=== PATIENT | male | born 1970 | race Caucasian/White ===

== ENCOUNTER 2025-05-06 13:48 | Emergency (ER) | payer OTHER, BC ==
[~2025-05-06] VITALS: Ht 167.6 cm; Wt 104.3 kg
[2025-05-06 14:25] LABS: IMMATURE GRANULOCYTE ABSOLUTE 0.06 K/uL (0-1); NUCLEATED RED BLOOD CELLS 0.0 % (0.0-0.19); PLATELET COUNT (AUTO) 295 K/uL (130-400); RED BLOOD CELL COUNT(AUTO) 4.28 MIL/uL (4.50-6.20); RED CELL DISTRIBUTION WIDTH 13.6 % (11.0-15.5); WHITE BLOOD COUNT (AUTO) 9.7 K/uL (4.8-10.8)
[2025-05-06 14:45] LABS: ALCOHOL, BLOOD < 3 mg/dL (0-10); ASPARTATE AMINOTRANSFERASE 10 U/L (10-37); CREATININE 0.7 mg/dL (0.5-1.3); GLOMERULAR FILTR. RATE CALC 108 mL/min (>90); GLUCOSE,RANDOM 260 mg/dL (70-105); SODIUM SERUM 140 mmol/L (136-145); TOTAL PROTEIN, SERUM 7.1 g/dL (6.0-8.3); UREA NITROGEN, BLOOD 13 mg/dL (7-18)
[2025-05-06 14:58] LABS: AMPHET/METH SCREEN,URINE NEGATIVE (NEGATIVE); BARBITURATE SCREEN, URINE NEGATIVE (NEGATIVE); CANNABINOID SCREEN,URINE POSITIVE (NEGATIVE); COCAINE SCREEN,URINE NEGATIVE (NEGATIVE)
--- NOTE | 2025-05-06 15:12 | HMCIMG ---
EXAM: CR Chest, 1 View. CLINICAL HISTORY: pain COMPARISON: None provided. FINDINGS: There is bibasilar airspace disease that may reflect atelectasis and/an infectious process. Suspected small right pleural effusion. No pneumothorax. Mild cardiomegaly, and central pulmonary vascular congestion. IMPRESSION: 1. Bibasilar airspace disease, possibly representing atelectasis or infection 2. Small right pleural effusion 3. Cardiomegaly with pulmonary vascular congestion /[place]
[2025-05-06] MEDS ORDERED: CYCL-309 PO (16:03)
[2025-05-06] MEDS ORDERED: POLY17PO4 PO (16:03)
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
[2025-05-06 16:17] VITALS: BP 178/85; PULSE 95; RESP 20; TEMP 98.3; O2SAT 96
== END 2025-05-06 16:23 | disposition home or self-care (01) ==
LOC: EDH 13:48
DX: S29.012A Strain of muscle and tendon of back wall of thorax, initial encounter (principal); E11.9 Type 2 diabetes mellitus without complications; Z86.73 Personal history of transient ischemic attack (TIA), and cerebral infarction without residual deficits; Z88.6 Allergy status to analgesic agent; Z88.8 Allergy status to other drugs, medicaments and biological substances; Z79.899 Other long term (current) drug therapy; V89.2XXA Person injured in unspecified motor-vehicle accident, traffic, initial encounter; Y92.410 Unspecified street and highway as the place of occurrence of the external cause; Y92.89 Other specified places as the place of occurrence of the external cause; Y99.8 Other external cause status
CPT/HCPCS: 36415; 71045; 80053; 80305; 83690; 83880; 84484; 85025; 99284

== ENCOUNTER 2025-07-31 11:57 | Emergency (ER) | payer BC, OTHER ==
[~2025-07-31] VITALS: Ht 177.8 cm; Wt 143.3 kg
[~2025-07-31 11:57] MED LIST: CYCL-309 PO; POLY17PO4 PO
--- NOTE | 2025-07-31 12:09 | ERN ---
ED Note History of Present Illness Stated Complaint: SOB,BLE EDEMA Chief Complaint: LOWER EXTREMITY EDEMA Time Seen by MD: 11:59 Dictation: Patient is a 55-year-old male coming in today from [place] with complaints of having edema to his bilateral lower extremities shortness a breath and abdominal distention for the last four days. He denies any history other than he is on hydrochlorothiazide for edema. He is a poor historian states he has not been to see his primary care doctor. No fever no chills no chest pain at this time. Patient does state he ran out of his HCTZ and Lasix one month ago and did not go back to see his primary care doctor for refills. Allergies: Coded Allergies: DENVER Inhibitors (Unverified Allergy, Intermediate, 05/06/25) amlodipine (Unverified Allergy, Intermediate, 05/06/25) hydralazine (Unverified Allergy, Intermediate, 05/06/25) lisinopril (Unverified Allergy, Intermediate, 05/06/25) metformin (Unverified Allergy, Intermediate, 05/06/25) minoxidil (Unverified Allergy, Intermediate, 05/06/25) naproxen (Unverified Allergy, Intermediate, FACIAL SWELLING, 05/06/25) Home Meds Active Scripts Polyethylene Glycol 3350 (Miralax) 17 Gram Powd.pack, 1 PACKET PO DAILY for constipation for 2 Days, #2 PACKET 0 Refills dissolve in water Prov:JOSÉ CARDONAP 05/06/25 Cyclobenzaprine HCl (Cyclobenzaprine HCl) 10 Mg Tablet, 1 TAB PO TID for muscle spasms for 10 Days, #30 TAB 0 Refills Prov:JOSÉ CARDONAP 05/06/25 Past Medical History Past Medical History: CVA, Diabetes-Type II, Hypertension, Stroke Surgical History: None RN Note Reviewed/Agreed w/PFSH: Yes Review of System Dictation CONSTITUTIONAL: Negative except for HPI HEAD/FACE: Negative except for HPI EENT: Negative except for HPI RESPIRATORY: Negative except for HPI dyspnea 3+ edema lower extremities GASTROINTESTINAL/ABDOMINAL: Negative except for HPI distention GENITOURINARY: Negative except for HPI MUSCULOSKELETAL: Negative except for HPI INTEGUMENTARY: Negative except for HPI NEUROLOGICAL/PSYCH: Negative except for HPI HEMATOLOGIC/LYMPHATIC: Negative except for HPI All Systems Negative, Except as noted above. 13 point review of systems assessed and all negative except for above. Initial Vital Sign VS Vital Signs Date Time Temp Pulse Resp B/P (MAP) Pulse Ox O2 Delivery O2 Flow Rate FiO2 07/31/25 11:59 98.2 101 20 180/102 99 Room Air 07/31/25 12:07 0 21 Physical Exam Dictation Vital Signs reviewed General Appearance: Alert, oriented x 3, poorly conditioned and morbidly obese male Head and Face: non-traumatic. Eyes: PERRL, pink conjunctivas, eyelid no trauma, anterior chamber with arcus senilis. Ears: Pinnas intact and no signs of trauma or erythema ear canals clear and no discharge TM no erythema Nose: No discharge, no bleeding. Oropharynx: Mouth normal, tongue pink, pharynx clear,no erythema, tonsils no exudates, no abscesses noted, mucous membrane moist Neck: Supple, non-tender, no thyromegaly, no masses, no JVD, no bruits Breast:Deferred Chest:No tenderness, no crepitus, no paradoxical movement, no retractions Lungs:Clear, well-ventilated, symmetric, no rales, no wheezing, no rhonchi, no stridor, good breath sounds bilaterally Heart: Regular rate, regular rhythm, no murmur, no gallops Vascular: n 3+ peripheral edema bilateral lower extremities, Abdomen: Soft, positive bowel sounds, nondistended, no guarding, nontender, no rebound, no masses no hepatomegaly, no splenomegaly, no Jiménez's sign, no hernias. Protuberant Rectal: Deferred Genital: Deferred Neurological: Normal speech, motor function intact, sensory function intact Musculoskeletal: Neck nontender, full range of motion, back nontender, full range of motion, Extremities: nontender, full range of motion Skin: Color pink, dry, no turgor, no rash, no lacerations, no abrasions, no contusions. Lymphatic: Deferred Results (Laboratory/Radiology) Laboratory/Radiology Laboratory Tests Test 07/31/25 12:07 07/31/25 12:28 Urine Color YELLOW (YELLOW) Urine Appearance CLEAR (CLEAR) Urine pH 6.0 (5.0-8.0) Urine Specific [place] 1.028 (1.001-1.031) Urine Protein 100 mg/dL (NEGATIVE) H Urine Glucose (UA) >=1000 mg/dL (NEGATIVE) H Urine Ketones NEGATIVE mg/dL (NEGATIVE) Urine Occult Blood NEGATIVE (NEGATIVE) Urine Nitrate NEGATIVE (NEGATIVE) Urine Bilirubin NEGATIVE mg/dL (NEGATIVE) Urine Urobilinogen 0.2 mg/dL (0.2-1.0) Urine Leukocyte Esterase NEGATIVE Ste[place]/uL Urine RBC 2-5 /HPF (0-1) H Urine WBC 2-5 /HPF (0-1) H Urine Squamous Epithelial Cells RARE /HPF (0-2) Urine Bacteria None /HPF (None Seen) White Blood Count 9.6 K/uL (4.8-10.8) Red Blood Count 4.49 MIL/uL (4.50-6.20) L Hemoglobin 12.5 g/dL (14.0-18.0) L Hematocrit 39.3 % (42-54) L Mean Corpuscular Volume 87.5 fL (79-99) Mean Corpuscular Hemoglobin 27.8 pg (27.0-33.0) Mean Corpuscular Hemoglobin Concent 31.8 g/dL (32.0-36.0) L Red Cell Distribution Width 14.0 % (11.0-15.5) Platelet Count 255 K/uL (130-400) Mean Platelet Volume 9.9 fL (7.5-10.5) Immature Granulocyte % (Auto) 0.5 % (0-1) Neutrophils (%) (Auto) 73.3 % (40.0-77.0) Lymphocytes (%) (Auto) 16.7 % (21.0-51.0) L Monocytes (%) (Auto) 7.4 % (3.0-13.0) Eosinophils (%) (Auto) 1.7 % (0.0-8.0) Basophils (%) (Auto) 0.4 % (0.0-5.0) Neutrophils # (Auto) 7.0 K/uL (1.8-7.7) Lymphocytes # (Auto) 1.6 K/uL (1.0-4.8) Monocytes # (Auto) 0.7 K/uL (0.1-1.0) Eosinophils # (Auto) 0.16 K/uL (0.00-0.70) Basophils # (Auto) 0.04 K/uL (0.00-0.20) Absolute Immature Granulocyte (auto 0.05 K/uL (0-1) Nucleated Red Blood Cells 0.0 % (0.0-0.19) Sodium Level 137 mmol/L (136-145) Potassium Level 3.6 mmol/L (3.5-5.1) Chloride Level 101 mmol/L (101-111) Carbon Dioxide Level 31 mmol/L (21-32) Blood Urea Nitrogen 13 mg/dL (7-18) Creatinine 0.9 mg/dL (0.5-1.3) Glomerular Filtration Rate Calc 100 mL/min (>90) Random Glucose 262 mg/dL (70-105) H Total Calcium 8.7 mg/dL (8.5-10.1) Magnesium Level 1.60 mg/dL (1.80-2.40) L Troponin I High Sensitivity 23 ng/L (4-75) B-Type Natriuretic Peptide 675 pg/mL (0-100) H 1232/chest x-ray shows bilateral vascular congestion without infiltrate Labs Reviewed?: Yes EKG Comment: EKG sinus tachycardia/heart rate 102/axis normal/no ectopy ED Course ED Course Orders Procedure Category Date Status Time B-Type Natriuretic LAB 07/31/25 Complete Peptide 12:03 Cbc With Differential LAB 07/31/25 Complete 12:03 12 Lead Ekg Tracing- EKG 07/31/25 Complete Technical 12:03 Magnesium LAB 07/31/25 Complete 12:03 Troponin I High LAB 07/31/25 Complete Sensitivity 12:03 Urinalysis Profile LAB 07/31/25 Complete 12:03 Basic Metabolic Panel LAB 07/31/25 Complete 12:03 Chest 1vw RAD 07/31/25 Resulted 12:03 Furosemide 40mg Vial PHA 07/31/25 Complete (Lasix 40mg Vial) 13:00 Current Medications Medications (Trade) Dose Ordered Sig/Fahad Route PRN Reason Start Time Stop Time Status Last Admin Dose Admin Furosemide (LASix 40MG VIAL) 80 mg ONCE ONCE IVP 07/31/25 13:00 07/31/25 13:01 DC 07/31/25 12:41 Vital Signs Date Time Temp Pulse Resp B/P (MAP) Pulse Ox O2 Delivery O2 Flow Rate FiO2 07/31/25 12:07 98.2 101 20 180/102 99 Room Air* 0 21 07/31/25 11:59 98.2 101 20 180/102 99 Room Air 1232/spoke with patient at length about his past medical history he does now admit that he has a diabetic and has hypertension and congestive Heart failure He said he ran out of his Lasix and HCTZ one month ago and did not go back to see Dr. Arellano in [place] for refills. He also states he has a insulin 70/30 at home in the refrigerator and a blood pressure medication that he just not take. He states he is not take the hypertensive medications because they making feel like shit and he is i mpotent.1315/ 1315/SPOKE TO PATIENT REGARDING HIS CLINICAL FINDINGS TO INCLUDE CONGESTIVE HEART FAILURE FLUID OVERLOAD UNCONTROLLED DIABETES. HE IS ADAMANT HE DOES NOT WANT TO STAY IN THE HOSPITAL AND SAYS HE HAS TO GO HOME BECAUSE HE HAS TO GO TO WORK. I TOLD HIM I PLAN OF A MORE AGGRESSIVE DIURESIS OVER THE NEXT 4-5 DAYS. IN ADDITION I WE WILL GIVE HIM REFILLS ON HYDROCHLOROTHIAZIDE. HE WAS STRONGLY ADVISED TO REDUCE HIS SODIUM IN HIS DIET AND FOLLOW UP WITH HIS DOCTOR AT [place] SOON POSSIBLE. HE WAS ALSO STRONGLY ADVISED TO BE COMPLIANT WITH HIS DIABETIC MEDICATIONS AND WAS GIVEN THE MEDICAL COMPLICATIONS TO INCLUDE BLINDNESS RENAL FAILURE ETC. HE SAID HE HAD RED GOOGLE AND HE UNDERSTOOD ALL THOSE THINGS. Medical Decision Making MDM MDM: DIFFERENTIAL DIAGNOSIS: ACS/PNEUMONIA/BRONCHITIS/A CONGESTIVE HEART F AILURE/CHRONIC KIDNEY DISEASE/ELECTROLYTE IMBALANCE/DECONDITIONING RATIONALE: TESTS CONSIDERED AND ORDERED SECONDARY TO SHARED DECISION MAKING INCLUDE: EKG/LABS/RADIOLOGY PREVIOUS OUTSIDE RECORDS REVIEWED: OLD ER VISITS. RISK OF COMPLICATION AND/OR MORBIDITY OR MORTALITY OF PATIENT MANAGEMENT: NONE MEDICATIONS-PER MEDICATION RECONCILIATION NEED FOR HOSPITALIZATION: PATIENT DOES NOT MEET CRITERIA FOR HOSPITALIZATION. PATIENT REFUSED ADMISSION STATES HE HAS TO GO HOME NEED FOR EMERGENCY MAJOR/MINOR SURGERY: NO THERE ARE NO SOCIAL CONCERNS WITH THIS PATIENT. PRESCRIPTION DRUG MANAGEMENT HCTZ/LASIX/K-DUR PRESCRIPTIONS WILL INCLUDE SYMPTOMATIC CARE PATIENT'S PRIOR EXTERNAL MEDICAL RECORDS FROM OTHER ER VISITS WERE REVIEWED BY ME INDICATED. PRIOR TESTING AND RESULTS FROM PREVIOUS VISITS WERE REVIEWED. PRIOR TESTS WERE TAKEN INTO ACCOUNT WITH MEDICAL DECISION MAKING AND RESOURCE U TILIZATION, INDEPENDENT HISTORIAN/HISTORIANS WERE USED TO OBTAIN COMPLETE MEDICAL HISTORY. I INDEPENDENTLY INTERPRETED THE TEST THAT WERE PERFORMED, RESULTS WERE REVIEWED BY ME AND CONSIDERED FINDINGS ON RADIOLOGY IF ORDERED. MEDICAL MANAGEMENT AND EXAMINATION INTERPRETATION DISCUSSIONS WERE HAD BY ME WITH OTHER QUALIFIED HEALTHCARE PROFESSIONALS INDICATED FOR THE PATIENT'S CA RE. DX & DISP Disposition: Discharge Departure Impression: Primary Impression: Acute exacerbation of congestive heart failure Additional Impressions: Uncontrolled diabetes mellitus, Hypomagnesemia, Dyspnea on minimal exertion, Medical non-compliance, Hypertension, Obesity, Chronic anemia Condition: Stable Scripts Potassium Chloride (K-Dur/Klor-Con) 20 Meq Ertab 1 TAB PO DAILY for 10 Days, #10 TAB 0 Refills Prov: JUAN MARIN NP 07/31/25 Furosemide (Furosemide) 80 Mg Tablet 1 TAB PO DAILY for 7 Days, #7 TAB 0 Refills Prov: JUAN MARIN NP 07/31/25 Hydrochlorothiazide (Hydrochlorothiazide) 25 Mg Tablet 1 TAB PO DAILY for 30 Days, #30 TAB 0 Refills Prov: JUAN MARIN NP 07/31/25 Additional Instructions: FOLLOW-UP WITH PRIMARY CARE PROVIDER IN 1 TO 2 DAYS. TAKE MEDICATIONS DI RECTED HERE IN THE EMERGENCY ROOM. OKAY TO CONTINUE HOME MEDICATIONS UNLESS OTHERWISE DISCUSSED DURING YOUR VISIT IN THE EMERGENCY ROOM TODAY. RETURN TO YOUR NEAREST EMERGENCY ROOM IF SYMPTOMS WORSEN OR IF THERE IS NO IMPROVEMENT. CALL 911 IF YOU NEED IMMEDIATE ASSISTANCE. TAKE TYLENOL OR MOTRIN [id number] NEEDED AND IF NO CONTRAINDICATIONS ARE PRESENT. INCREASE ORAL HYDRATION. A WOUND CULTURE OR URINE CULTURE WAS ORDERED HERE IN THE EMERGENCY ROOM DEPARTMENT PLEASE FOLLOW-UP WITH PRIMARY CARE PROVIDER AND ADVISE THEM TO GET REPEAT PORTS FROM OUR FACILITY. IF YOU HAD ANY DENVER WRAP/SPLINTS THAT WERE APPLIED HERE, PLEASE DO NOT REMOVE THEM UNTIL YOU SEE YOUR PRIMARY CARE OR SPECIALTY. STRONGLY SUGGEST RESUMING USE OF YOUR BLOOD PRESSURE MEDICATIONS AND YOUR DIABETIC MEDICATIONS AT HOME. TAKE LASIX 80 MG DAILY FOR SEVEN DAYS DIRECTED WITH POTASSIUM. TAKE HCTZ DIRECTED DAILY AND SEE YOUR DOCTOR IN [place] IN THE NEXT 3-4 DAYS FOR MANAGEMENT USE YOUR ALBUTEROL INHALER EVERY 4-6 HOURS FOR THE NEXT TWO DAYS. Referrals: PARISA ARELLANO (PCP) Time of Disposition: 13:17 I have reviewed the case, and I agree with, Diagnosis and Plan JUAN MARIN NP Jul 31, 2025 12:09
--- NOTE | 2025-07-31 12:19 | EKG ---
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
[2025-07-31 12:22] LABS: APPEARANCE,URINE CLEAR (CLEAR); GLUCOSE, URINE (UA) >=1000 mg/dL (NEGATIVE); LEUKOCYTE ESTERASE ,URINE NEGATIVE Leu/uL (NEGATIVE); NITRATE,URINE NEGATIVE (NEGATIVE); OCCULT BLOOD,URINE NEGATIVE (NEGATIVE)
[2025-07-31 12:24] LABS: ADD UA MICROSCOPIC YES
[2025-07-31 12:28] LABS: SQUAMOUS EPITHELIAL CELL,UR RARE /HPF (0-2)
[2025-07-31 12:39] LABS: IMMATURE GRANULOCYTE ABSOLUTE 0.05 K/uL (0-1); NUCLEATED RED BLOOD CELLS 0.0 % (0.0-0.19); PLATELET COUNT (AUTO) 255 K/uL (130-400); RED BLOOD CELL COUNT(AUTO) 4.49 MIL/uL (4.50-6.20); RED CELL DISTRIBUTION WIDTH 14.0 % (11.0-15.5); WHITE BLOOD COUNT (AUTO) 9.6 K/uL (4.8-10.8)
[2025-07-31 12:46] LABS: CREATININE 0.9 mg/dL (0.5-1.3); GLOMERULAR FILTR. RATE CALC 100.0 mL/min (>90); GLUCOSE,RANDOM 262.0 mg/dL (70-105); SODIUM SERUM 137.0 mmol/L (136-145); UREA NITROGEN, BLOOD 13.0 mg/dL (7-18)
--- NOTE | 2025-07-31 13:13 | HMCIMG ---
EXAM: CR Chest, 1 View. CLINICAL HISTORY: Shortness a breath COMPARISON: Radiograph dated May 06, 2025 Findings: AP view of the chest is submitted. There is mild bibasilar airspace disease that may reflect atelectasis. No pleural effusion or pneumothorax. Relatively unchanged cardiomegaly. Mild central pulmonary vascular congestion. IMPRESSION: 1. Mild bibasilar airspace disease, possibly atelectasis. 2. Cardiomegaly, unchanged, with mild central pulmonary vascular congestion. /[place]
[2025-07-31] MEDS ORDERED: FURO80TA3 PO (13:20)
[2025-07-31] MEDS ORDERED: POTA-192 PO (13:20)
[2025-07-31] MEDS ORDERED: HYDR25TA PO (13:20)
[2025-07-31 14:06] VITALS: BP 169/94; PULSE 97; RESP 20; TEMP 98.1; O2SAT 99
== END 2025-07-31 14:07 | disposition home or self-care (01) ==
LOC: EDH 11:57
DX: I11.0 Hypertensive heart disease with heart failure (principal); I50.9 Heart failure, unspecified; E11.65 Type 2 diabetes mellitus with hyperglycemia; E83.42 Hypomagnesemia; E66.9 Obesity, unspecified; D64.9 Anemia, unspecified; Z79.899 Other long term (current) drug therapy; Z86.73 Personal history of transient ischemic attack (TIA), and cerebral infarction without residual deficits; Z88.6 Allergy status to analgesic agent; Z88.8 Allergy status to other drugs, medicaments and biological substances; Z91.199 Patient's noncompliance with other medical treatment and regimen due to unspecified reason
CPT/HCPCS: 99284; 96374; 71045; 83735; 84484; 80048; 83880; 85025; 81001; 36415; 93005; J1938